=== PATIENT | female | born 2005 | race Caucasian/White ===

== ENCOUNTER → 2024-02-01 10:41 | Outpatient (REF) | payer OTHER, SELFPAY ==
[2024-02-01 15:19] LABS: % Basophils 0.8 % (0-2); % Eosinophils 0.9 % (0-6); % Immature Granulocytes 0.2 % (0-0.5); % Lymphocytes 44.3 % (20.5-51.1); % Neutrophils 47.8 % (42.2-75.2); Absolute Eosinophils 0.1 10^3/uL (0-0.7); Absolute Lymphocytes 2.4 10^3/uL (1.2-3.4); Absolute Monocytes 0.3 10^3/uL (0.1-0.6); Absolute Neutrophils 2.5 10^3/uL (1.4-6.5); Hematocrit 39.4 % (37.0-47.0); Hemoglobin 13.8 g/dL (12.0-16.0); Mean Corpuscular Hgb 31.1 pg (27.0-31.0); Mean Corpuscular Volume 88.7 fL (81.0-99.0); Mean Platelet Volume 10.3 fL (7.4-10.4); Nucleated Red Blood Cells % 0 %; Platelet Count 246 10^3/uL (130-400); Red Blood Cell Count 4.44 10^6/uL (4.20-5.40); Red Cell Dist. Width 11.6 % (11.5-14.5); White Blood Cell Count 5.3 10^3/uL (4.8-10.8)
[2024-02-01 15:24] LABS: HDL Cholesterol 52 mg/dl; Iron 109 ug/dl (37-170); LDL Cholesterol, Calculated 136 mg/dl; Phosphorus 4.1 mg/dl (2.5-4.5); Total Cholesterol 204 mg/dl (50-199); Triglyceride 81 mg/dl (10-149); Very Low Density Lipoprotein 16 mg/dl (0-30)
[2024-02-01 15:32] LABS: Percent Saturation 36 % (20-50); Total Iron Binding Capacity 296 ug/dl (265-497)
[2024-02-01 15:37] LABS: Free T4 1.12 ng/dl (0.78-2.19); Vitamin D, 25-OH*** 39.3 ng/mL (30-80)
[2024-02-01 15:50] LABS: TSH 1.04 uIU/ml (0.47-4.68)
[2024-02-01 15:54] LABS: Ferritin 45.8 ng/ml (6.24-137)
[2024-02-01 16:26] LABS: Folate 17.1 ng/ml (2.76-20); Vitamin B12 475 pg/ml (239-931)
[2024-02-02 12:11] LABS: Glycohemoglobin (HgbA1c) 5.1 % (4.0-5.6)
[2024-02-03 23:05] LABS: Clam <0.10 kU/L (<=0.34); Codfish <0.10 kU/L (<=0.34); Corn <0.10 kU/L (<=0.34); Egg White <0.10 kU/L (<=0.34); IgE 6 kU/L (<=214); Milk (Cow's) <0.10 kU/L (<=0.34); Peanut <0.10 kU/L (<=0.34); Scallop <0.10 kU/L (<=0.34); Shrimp <0.10 kU/L (<=0.34); Soybean <0.10 kU/L (<=0.34); Walnut/Black Walnut <0.10 kU/L (<=0.34); Wheat <0.10 kU/L (<=0.34)
[2024-02-04 00:09] LABS: IgA 74 mg/dl (70-400)
[2024-02-04 00:18] LABS: H. pylori Antigen, Fecal Negative (Negative)
[2024-02-04 07:36] LABS: Endomysial IgA Antibody Titer <1:10 (<1:10)
== END ==
LOC: HWLAB 10:41
PROVIDERS: ATTENDING PHYSICIAN Pediatrics
DX: Z13.89 Encounter for screening for other disorder (principal)
CPT/HCPCS: 36415; 80061; 82306; 82607; 82728; 82746; 82784; 82785; 83036; 83516; 83540; 83550; 83735; 84100; 84439; 84443; 84630; 85025; 86003; 86231; 87338

== ENCOUNTER 2024-02-26 05:00 | Emergency (ER) | payer OTHER, SELFPAY ==
[2024-02-26 05:03] VITALS: BP 130/90
[2024-02-26 05:24] LABS: Urine Albumin Trace (Neg - Trace); Urine Bilirubin Negative (Negative); Urine Character Slightly Cloudy (Clear); Urine Color Yellow; Urine Glucose Negative (Negative); Urine Ketone Trace (Negative); Urine Leukocyte Negative (Negative); Urine Nitrite Negative (Negative); Urine Occult Blood 4+ (Negative); Urine Specific Gravity 1.025 (<1.030); Urine Urobilinogen Negative (Neg - 1+)
[2024-02-26 05:25] LABS: % Basophils 0.4 % (0-2); % Eosinophils 0.6 % (0-6); % Immature Granulocytes 0.3 % (0-0.5); % Lymphocytes 36.4 % (20.5-51.1); % Monocytes 3.9 % (1.7-9.3); % Neutrophils 58.4 % (42.2-75.2); Absolute Eosinophils 0.1 10^3/uL (0-0.7); Absolute Lymphocytes 3.5 10^3/uL (1.2-3.4); Absolute Monocytes 0.4 10^3/uL (0.1-0.6); Absolute Neutrophils 5.7 10^3/uL (1.4-6.5); Hemoglobin 13.2 g/dL (12.0-16.0); Mean Corp Hgb Conc. 35.7 g/dL (33.0-37.0); Mean Corpuscular Hgb 30.3 pg (27.0-31.0); Mean Corpuscular Volume 85.1 fL (81.0-99.0); Nucleated Red Blood Cells % 0 %; Platelet Count 230 10^3/uL (130-400); Red Blood Cell Count 4.35 10^6/uL (4.20-5.40); Red Cell Dist. Width 11.6 % (11.5-14.5); White Blood Cell Count 9.7 10^3/uL (4.8-10.8)
[2024-02-26 05:36] LABS: HCG, Serum Qualitative Screen Negative
[2024-02-26 05:43] LABS: ALT (SGPT) 18 U/L (0-35); AST (SGOT) 24 U/L (14-36); Alkaline Phosphatase 59 U/L (38-126); Blood Urea Nitrogen 14 mg/dl (7-17); Calcium 9.7 mg/dl (8.4-10.2); Carbon Dioxide 27 mmol/L (22-30); Chloride 103 mmol/L (98-107); Glucose 141 mg/dl (70-99); Potassium 3.4 mmol/L (3.5-5.1); Sodium 140 mmol/L (135-145); Total Bilirubin 0.8 mg/dl (0.2-1.3); Total Protein 7.8 g/dl (6.3-8.2); eGFR > 60.00
[2024-02-26 05:46] LABS: Urine Squamous Cell 0-2 /LPF (Few)
[2024-02-26 05:47] LABS: Urine Red Blood Cell 50-60 /HPF (0-2)
[2024-02-26 05:49] LABS: Urine Bacteria Moderate (Negative)
[2024-02-26 06:09] VITALS: BP 126/80
== END 2024-02-26 06:11 | disposition left against medical advice (07) ==
LOC: EMR 05:00
PROVIDERS: EMERGENCY PHYSICIAN Emergency Medicine
DX: R25.2 Cramp and spasm (principal); Z53.21 Procedure and treatment not carried out due to patient leaving prior to being seen by health care provider
CPT/HCPCS: 80053; 81003; 81015; 84703; 85025